=== PATIENT | female | born 1960 | race Caucasian/White ===

== ENCOUNTER → 2024-02-16 06:32 | Day surgery (SDC) | payer OTHER, SELFPAY | LOC: GI 06:32 | PROVIDERS: ATTENDING PHYSICIAN Internal Medicine Gastroenterology; FAMILY PHYSICIAN Family Medicine | DX: Z12.11 Encounter for screening for malignant neoplasm of colon (principal); D12.2 Benign neoplasm of ascending colon; K57.30 Diverticulosis of large intestine without perforation or abscess without bleeding; Z87.19 Personal history of other diseases of the digestive system; Z80.0 Family history of malignant neoplasm of digestive organs | CPT/HCPCS: 45380; 88305 ==

== ENCOUNTER 2025-07-28 13:57 | Emergency (ER) | payer OTHER, SELFPAY ==
[2025-07-28 14:02] VITALS: BP 144/93
[2025-07-28 14:48] VITALS: BP 121/73
[2025-07-28 15:03] LABS: Hematocrit 40.6 % (37.0-47.0); Hemoglobin 14.0 g/dL (12.0-16.0); Mean Corp Hgb Conc. 34.5 g/dL (33.0-37.0); Mean Corpuscular Volume 87.1 fL (81.0-99.0); Nucleated Red Blood Cells % 0 %; Platelet Count 241 10^3/uL (130-400); Red Cell Dist. Width 12.7 % (11.5-14.5)
[2025-07-28 15:15] LABS: Urine Character Clear (Clear)
--- NOTE | 2025-07-28 15:28 | ED.GENMED ---
History of Present Illness
General
Chief Complaint: Abdominal Pain
Source: patient
Exam Limitations: none
Time Seen by Provider: 07/28/25 14:49
History of Present Illness
History of Present Illness:
65-year-old female presents complaining of onset of left lower abdominal pain starting yesterday. She has a history of diverticulitis. She has had diverticulitis several times and this feels similar. She denies fevers or vomiting. She has been
moving her bowels. She is improved in the past antibiotics for her diverticulitis. She is never required surgery and never has been told she has had an abscess. No urinary symptoms. No other time. She is not a diabetic
Past History
Past History
ED Past Medical History: Other (Diverticulitis)
ED Past Surgical History: Cholecystectomy, and Orthopedic (Bilateral knee replacement)
Social History
Tobacco: Non-smoker
Alcohol: None
Drug: None
Personal:
Living: with family
Phy Exam
Physical Exam
Physical Exam:
General: Well-appearing female no acute respiratory distress
HEENT: Normocephalic atraumatic
Heart: Regular rate and rhythm
Lungs: Clear no wheeze abdomen: Soft mild tenderness to the lower abdomen on the left side no guarding or rebound on
Extremities: No cyanosis
Course
Orders/Labs/Results
Orders:
Orders
07/28/25 14:54
Complete Blood Count/With Diff Urgent
Comprehensive Metabolic Panel Urgent
Lipase Urgent
Urinalysis Reflex To Culture Urgent
Date Specimen was Collected: 07/28/25
Time Specimen was Collected: 14:52
Urine Microscopic Reflex Cult Urgent
Urine Culture Urgent
LENARD Source: U
Specimen Description:
Date Specimen was Collected: 07/28/25
Time Specimen was Collected: 14:52
Abnormal Lab Results
07/28/25
14:54
WBC 11.2 H 10^3/uL
(4.8-10.8)
Absolute Neuts (auto) 8.0 H 10^3/uL
(1.4-6.5)
Absolute Monos (auto) 1.0 H 10^3/uL
(0.1-0.6)
Lymphocytes % 17.1 L %
(20.5-51.1)
Total Bilirubin 1.4 H mg/dl
(0.2-1.3)
ALT 57 H U/L
(0-35)
Leukocyte Esterase Rfl 1+ A
(Negative)
Urine WBC (Reflex) 11-15 A /HPF
(0-5)
Urine Bacteria (Reflex) Few A
(Negative)
Urine Albumin (Reflex) 1+ A
(Neg - Trace)
07/28/25 14:54
07/28/25 14:54
Vital Signs
Initial and Last Documented VS:
Initial Vital Signs
Temp Pulse Resp BP Pulse Ox
99.1 F 114 18 144/93 97
07/28/25 14:02 07/28/25 14:02 07/28/25 14:02 07/28/25 14:02 07/28/25 14:02
Last Documented Vital Signs
Temp Pulse Resp BP Pulse Ox
99.1 F 90 16 121/73 95
07/28/25 14:02 07/28/25 14:56 07/28/25 16:03 07/28/25 14:48 07/28/25 15:30
MDM/Problems Addressed
Differential Diagnosis Includes:
Lower abdominal pain. Consider diverticulitis versus renal colic versus constipation versus UTI
Patient has had diverticulitis many times and this feels very similar. She has had many CT scans documenting this. She has never had an abscess. Will check labs. Offered CT scan of abdomen. Risks and benefits were discussed regarding performing
CT scan and not performing CT scan. Potential risk of not performing CT scan is the fact that we could be missing a complication of diverticulitis such as an abscess or perforation. Patient states that she feels this is very similar to her prior
episodes of diverticulitis. Her pain is minimal at best. She wishes to hold off on another CT scan at this point. Will start Augmentin for presumed diverticulitis. White blood cell count is 11.2.
*Pulse Oximetry
SaO2: 95
Patient hypoxic: no
*Critical Care Note
Total Time (30-74mins, 75-104mins- exclusive of procedures): Not Applicable
ED Attending Note
-
Portions of this chart may have been created with voice recognition software.� Occasional wrong word or��sound alike� substitutions may have occurred due to the inherent limitations of voice recognition software.
Discharge Plan
Departure
Patient Disposition: Home (Routine Discharge)
Date of Disposition: 07/28/25
Time of Disposition: 16:23
Patient with high blood pressure during this ER visit?: No
Discharge Problem:
presumed diverticulitis
Instructions: Diverticulitis (DC)
Prescriptions:
New
amoxicillin-pot clavulanate 875-125 mg tablet
1 tab PO BID Qty: 20 0RF
No Action
amlodipine 5 mg Tablet
5 mg PO DAILY
spironolactone 25 mg Tablet
25 mg PO DAILY
levothyroxine 100 mcg Tablet
100 mcg PO DAILY
ezetimibe 10 mg Tablet
10 mg PO HS
levofloxacin 500 mg tablet
500 mg PO DAILY 7 Days Qty: 7 0RF
metronidazole 500 mg tablet
500 mg PO TID Qty: 21 0RF
Referrals:
Luis Blanco DO [Family Provider, Family Practice]
Activity Restrictions/Additional Instructions:
Drink plenty clear liquids. Use Augmentin as directed. Please return here for increasing pain fever vomiting or other concerning findings
Interventions
Interventions:
*Risk Screen - Suicide Last Done: 07/28/25 14:03
*General Assessment Last Done: 07/28/25 14:03
*Neglect/Abuse Screening Last Done: 07/28/25 14:03
*ED- Fall Risk Assessment Last Done: 07/28/25 14:31
*ED COVID-19 Vaccine History Last Done: 07/28/25 14:31
GG-[id number]-[id number] Assessment Last Done: 07/28/25 14:31
Discharge Date and Time
Print Language: PARAGUAYAN
[2025-07-28 15:41] LABS: ALT (SGPT) 57 U/L (0-35); AST (SGOT) 32 U/L (14-36); Albumin 4.4 g/dl (3.5-5.0); Alkaline Phosphatase 72 U/L (38-126); Blood Urea Nitrogen 11 mg/dl (7-17); Calcium 9.2 mg/dl (8.4-10.2); Carbon Dioxide 23 mmol/L (22-30); Chloride 107 mmol/L (98-107); Glucose 98 mg/dl (70-99); Lipase 81 U/L (23-300); Potassium 3.9 mmol/L (3.5-5.1); Sodium 137 mmol/L (135-145); Total Protein 7.0 g/dl (6.3-8.2); eGFR > 60.00
[2025-07-28 16:14] LABS: Urine Red Blood Cell 0-2 /HPF (0-2)
[2025-07-28] MEDS: AUGMENTIN 875 MG/125 MG 1 TABLET PO (16:30)
== END 2025-07-28 16:40 | disposition home or self-care (01) ==
LOC: EMR 13:57
PROVIDERS: EMERGENCY PHYSICIAN Emergency Medicine; FAMILY PHYSICIAN Family Medicine
DX: R10.32 Left lower quadrant pain (principal); K57.32 Diverticulitis of large intestine without perforation or abscess without bleeding; Z90.49 Acquired absence of other specified parts of digestive tract; Z96.653 Presence of artificial knee joint, bilateral
CPT/HCPCS: 99283; 80053; 81003; 81015; 83690; 85025; 87086